=== PATIENT | male | born 1955 | race Caucasian/White ===

== ENCOUNTER 2017-10-21 16:12 | Emergency (ER) | payer BC ==
[~2017-10-21] VITALS: Ht 175.2 cm; Wt 83.9 kg
[2017-10-21] MEDS ORDERED: METFORMIN HYD1000 MG PO (16:18)
[2017-10-21] MEDS ORDERED: PRINIVIL10 MG PO (16:18)
[2017-10-21] MEDS ORDERED: CEPHALEXIN500 M1 PO (16:53)
== END 2017-10-21 17:39 | disposition home or self-care (01) ==
LOC: ED 16:12
DX: S69.91XA Unspecified injury of right wrist, hand and finger(s), initial encounter (principal); F17.200 Nicotine dependence, unspecified, uncomplicated; Z79.899 Other long term (current) drug therapy; W22.8XXA Striking against or struck by other objects, initial encounter; Y93.89 Activity, other specified; Y92.89 Other specified places as the place of occurrence of the external cause; Y99.8 Other external cause status

== ENCOUNTER → 2022-02-05 | Outpatient (CLI) | payer BC ==
[~2022-02-05] MED LIST: CEPHALEXIN500 M1 PO; METFORMIN HYD1000 MG PO; PRINIVIL10 MG PO
== END | disposition home or self-care (01) ==
LOC: RESCLI 00:51
PROVIDERS: ATTEND Internal Medicine
DX: E11.9 Type 2 diabetes mellitus without complications (principal); E55.9 Vitamin D deficiency, unspecified; E78.5 Hyperlipidemia, unspecified; F52.4 Premature ejaculation; L03.90 Cellulitis, unspecified; K59.00 Constipation, unspecified; I10 Essential (primary) hypertension; Z98.890 Other specified postprocedural states; Z87.891 Personal history of nicotine dependence; Z72.89 Other problems related to lifestyle; Z79.84 Long term (current) use of oral hypoglycemic drugs; Z79.899 Other long term (current) drug therapy

== ENCOUNTER → 2022-08-06 | Outpatient (CLI) | payer OTHER | END | disposition home or self-care (01) | LOC: RESCLI 08-05 11:40 | PROVIDERS: ATTEND Student in an Organized Health Care Education/Training Program | DX: E11.9 Type 2 diabetes mellitus without complications (principal); E55.9 Vitamin D deficiency, unspecified; E78.5 Hyperlipidemia, unspecified; M25.50 Pain in unspecified joint; K59.00 Constipation, unspecified; I10 Essential (primary) hypertension; Z72.0 Tobacco use; Z98.890 Other specified postprocedural states; Z79.4 Long term (current) use of insulin; Z79.84 Long term (current) use of oral hypoglycemic drugs; Z79.899 Other long term (current) drug therapy ==